=== PATIENT | male | born 1965 | race Caucasian/White ===

== ENCOUNTER 2021-09-12 15:03 | Inpatient (IN) | payer MEDICARE, OTHER ==
[2021-09-12 16:55] VITALS: BMI 39.0
[2021-09-12] MEDS ORDERED: BISMUTH SUBSALICYLATE 524 MG/30 ML PO PRN (18:41)
[2021-09-12] MEDS ORDERED: MAGNESIUM CITRATE 300 ML BOTTLE PO PRN (18:41)
[2021-09-12] MEDS ORDERED: MENTHOL/PHENOL 1 EACH UD MM PRN (18:41)
[2021-09-12] MEDS ORDERED: ONDANSETRON *ODT* 4 MG TABLET SL PRN (18:41)
[2021-09-12] MEDS ORDERED: MAG HYDROX/AL HYDROX/SIMETH 30 ML UNIT-DOSE CUP PO PRN (18:41)
[2021-09-12] MEDS ORDERED: MAGNESIUM HYDROX 2400MG/30ML ORAL SUSPENSION 30 ML CUP PO PRN (18:41)
[2021-09-12] MEDS: THIAMINE HCL 100 MG TABLET (FP) PO SCH (22:32)
[2021-09-12] MEDS: MELATONIN 5 MG TABLETS PO SCH (22:32)
[2021-09-13 10:14] LABS: HEMATOCRIT 31.1 % (35.4-49); HEMOGLOBIN 10.8 GM/dL (11.7-16.9); MCH 32.2 pg (25.7-33.7); MCHC 34.7 g/dl (32.0-35.9); MEAN CELL VOLUME 92.9 fl (80-96); MEAN PLT VOLUME 7.8 fl (7.5-11.1); PLATELET COUNT 81 10^3/uL (134-434); RBC 3.35 M/mm3 (4.00-5.60); RDW 16.9 % (11.9-15.9); WHITE BLOOD COUNT 3.3 K/mm3 (4.0-10.0)
[2021-09-13] MEDS: PRENATAL VITAMINS W/ FOLIC ACID TABLET (FP) PO SCH (10:24)
[2021-09-13] MEDS: diazePAM 5 MG TABLET PO SCH ×3 (10:24→22:41)
[2021-09-13] MEDS: IBUPROFEN 400 MG TABLET (FP) PO PRN ×2 (10:26→18:01)
[2021-09-13 10:39] LABS: BLOOD UREA NITROGEN 7.1 mg/dL (7-18); CALCIUM 8.3 mg/dL (8.5-10.1)
[2021-09-13 10:42] LABS: CREATININE 0.6 mg/dL (0.55-1.3)
[2021-09-13 10:44] LABS: BILIRUBIN,TOTAL 2.1 mg/dL (0.2-1)
[2021-09-13] MEDS ORDERED: FLU VACC QS2021-22(6MOS UP)/PF 60 MCG/0.5 ML SYRINGE IM ONE (12:00)
[2021-09-13] MEDS: diazePAM 5 MG TABLET PO PRN (15:41)
[2021-09-13] MEDS: METHOCARBAMOL 500 MG TABLET PO PRN ×2 (15:43→22:41)
[2021-09-13] MEDS: MELATONIN 5 MG TABLETS PO SCH (22:41)
[2021-09-13] MEDS: THIAMINE HCL 100 MG TABLET (FP) PO SCH (22:41)
[2021-09-14] MEDS: diazePAM 5 MG TABLET PO SCH ×4 (06:46→22:36)
[2021-09-14] MEDS: METHOCARBAMOL 500 MG TABLET PO PRN ×2 (10:06→22:36)
[2021-09-14] MEDS: PRENATAL VITAMINS W/ FOLIC ACID TABLET (FP) PO SCH (10:06)
[2021-09-14] MEDS: IBUPROFEN 400 MG TABLET (FP) PO PRN ×2 (10:09→19:43)
[2021-09-14] MEDS: THIAMINE HCL 100 MG TABLET (FP) PO SCH (22:36)
[2021-09-14] MEDS: MELATONIN 5 MG TABLETS PO SCH (22:36)
[2021-09-15] MEDS: diazePAM 5 MG TABLET PO SCH ×3 (06:44→22:54)
[2021-09-15] MEDS: IBUPROFEN 400 MG TABLET (FP) PO PRN (06:48)
[2021-09-15] MEDS: PRENATAL VITAMINS W/ FOLIC ACID TABLET (FP) PO SCH (10:38)
[2021-09-15] MEDS: diazePAM 5 MG TABLET PO PRN (10:39)
[2021-09-15 12:37] LABS: HEMATOCRIT 32.3 % (35.4-49); HEMOGLOBIN 11.1 GM/dL (11.7-16.9); INR 1.11 (0.83-1.09); MCH 32.8 pg (25.7-33.7); MCHC 34.3 g/dl (32.0-35.9); MEAN CELL VOLUME 95.6 fl (80-96); MEAN PLT VOLUME 8.4 fl (7.5-11.1); PLATELET COUNT 87 10^3/uL (134-434); PROTHROMBIN TIME (PATIENT) 12.4 SEC (9.7-13.0); RBC 3.38 M/mm3 (4.00-5.60); RDW 17.4 % (11.9-15.9); WHITE BLOOD COUNT 3.1 K/mm3 (4.0-10.0)
[2021-09-15 12:39] LABS: ALBUMIN 3.1 g/dl (3.4-5.0); BLOOD UREA NITROGEN 10.8 mg/dL (7-18); CALCIUM 8.9 mg/dL (8.5-10.1)
[2021-09-15 12:42] LABS: CREATININE 0.7 mg/dL (0.55-1.3)
[2021-09-15 12:43] LABS: BILIRUBIN,TOTAL 1.2 mg/dL (0.2-1); TOT PROT 7.4 g/dl (6.4-8.2)
[2021-09-15] MEDS: LIDOCAINE 5% TOPICAL PATCH TP SCH (14:56)
[2021-09-15] MEDS: MELATONIN 5 MG TABLETS PO SCH (22:53)
[2021-09-15] MEDS: THIAMINE HCL 100 MG TABLET (FP) PO SCH (22:53)
[2021-09-15] MEDS: LIDOCAINE PATCH REMOVAL MC SCH (22:54)
[2021-09-16] MEDS: diazePAM 5 MG TABLET PO SCH ×2 (06:32→17:31)
[2021-09-16] MEDS: PRENATAL VITAMINS W/ FOLIC ACID TABLET (FP) PO SCH (10:33)
[2021-09-16] MEDS: LIDOCAINE 5% TOPICAL PATCH TP SCH (10:33)
[2021-09-16] MEDS: IBUPROFEN 400 MG TABLET (FP) PO PRN (10:35)
[2021-09-16] MEDS: METHOCARBAMOL 500 MG TABLET PO PRN (20:39)
[2021-09-16] MEDS: LIDOCAINE PATCH REMOVAL MC SCH (22:23)
[2021-09-16] MEDS: THIAMINE HCL 100 MG TABLET (FP) PO SCH (22:23)
[2021-09-16] MEDS: MELATONIN 5 MG TABLETS PO SCH (22:23)
[2021-09-17] MEDS ORDERED: diazePAM 5 MG TABLET PO ONE (06:00)
[2021-09-17] MEDS: LIDOCAINE 5% TOPICAL PATCH TP SCH (10:29)
[2021-09-17] MEDS: PRENATAL VITAMINS W/ FOLIC ACID TABLET (FP) PO SCH (10:29)
[2021-09-17] MEDS: IBUPROFEN 400 MG TABLET (FP) PO PRN (10:30)
[2021-09-17 13:24] VITALS: BP 99/60; PULSE 82; TEMP 97.3
== END 2021-09-17 13:03 | disposition other institution (70) | DRG 897 ==
LOC: YASAS 15:03 → Y3N 18:30 → UNDOADMIN 18:30
PROVIDERS: ADMIT Allergy & Immunology; ATTEND Allergy & Immunology
PROC: HZ2ZZZZ Detoxification Services for Substance Abuse Treatment (ICD-10-PCS; principal; 2021-09-12)
DX: F10.230 Alcohol dependence with withdrawal, uncomplicated (principal); I69.854 Hemiplegia and hemiparesis following other cerebrovascular disease affecting left non-dominant side; D61.818 Other pancytopenia; E80.6 Other disorders of bilirubin metabolism; K74.60 Unspecified cirrhosis of liver; M54.50 Low back pain, unspecified; G89.29 Other chronic pain; H91.91 Unspecified hearing loss, right ear; R74.8 Abnormal levels of other serum enzymes; R26.89 Other abnormalities of gait and mobility; Z99.89 Dependence on other enabling machines and devices; Z59.00 Homelessness unspecified
CPT/HCPCS: 36415; 80053; 85027; 85610; 86780; C9803; U0003; U0005

== ENCOUNTER 2021-09-17 13:18 | Inpatient (IN) | payer MEDICARE, OTHER ==
[2021-09-17] MEDS ORDERED: LOPERAMIDE HCL 2 MG CAPSULE PO PRN (13:59)
[2021-09-17] MEDS ORDERED: ACETAMINOPHEN 325 MG TABLET (FP) PO PRN (13:59)
[2021-09-17] MEDS ORDERED: MAGNESIUM HYDROX 2400MG/30ML ORAL SUSPENSION 30 ML CUP PO PRN (13:59)
[2021-09-17] MEDS ORDERED: guaiFENesin 200 MG/10 ML 10 ML UNIT-DOSE CUPS PO PRN (13:59)
[2021-09-17] MEDS ORDERED: P-EPHED 60MG/TRIPROLIDI 2.5MG TABLET PO PRN (13:59)
[2021-09-17] MEDS ORDERED: MAGNESIUM CITRATE 300 ML BOTTLE PO PRN (13:59)
[2021-09-17] MEDS ORDERED: MENTHOL/PHENOL 1 EACH UD MM PRN (13:59)
[2021-09-17] MEDS ORDERED: MAG HYDROX/AL HYDROX/SIMETH 30 ML UNIT-DOSE CUP PO PRN (13:59)
[2021-09-17] MEDS: hydrOXYzine PAMOATE 25 MG CAPSULE (FP) PO SCH ×3 (15:28→21:46)
[2021-09-17] MEDS: THIAMINE HCL 100 MG TABLET (FP) PO SCH (21:45)
[2021-09-17] MEDS: MELATONIN 5 MG TABLETS PO SCH (21:45)
[2021-09-18] MEDS: hydrOXYzine PAMOATE 25 MG CAPSULE (FP) PO SCH ×6 (06:53→21:16)
[2021-09-18] MEDS: IBUPROFEN 400 MG TABLET (FP) PO PRN ×3 (07:11→21:17)
[2021-09-18] MEDS: LIDOCAINE 5% TOPICAL PATCH TP SCH (10:28)
[2021-09-18] MEDS: PRENATAL VITAMINS W/ FOLIC ACID TABLET (FP) PO SCH (10:29)
[2021-09-18 16:47] LABS: HIV INTERPRETATION NEGATIVE (NEGATIVE)
[2021-09-18] MEDS: THIAMINE HCL 100 MG TABLET (FP) PO SCH (21:16)
[2021-09-18] MEDS: MELATONIN 5 MG TABLETS PO SCH (21:16)
[2021-09-18] MEDS: LIDOCAINE PATCH REMOVAL MC SCH (21:16)
[2021-09-19] MEDS: hydrOXYzine PAMOATE 25 MG CAPSULE (FP) PO SCH ×5 (06:50→22:16)
[2021-09-19] MEDS: IBUPROFEN 400 MG TABLET (FP) PO PRN ×2 (06:53→13:57)
[2021-09-19] MEDS: LIDOCAINE 5% TOPICAL PATCH TP SCH (11:12)
[2021-09-19] MEDS: PRENATAL VITAMINS W/ FOLIC ACID TABLET (FP) PO SCH (11:12)
[2021-09-19] MEDS: THIAMINE HCL 100 MG TABLET (FP) PO SCH (22:16)
[2021-09-19] MEDS: MELATONIN 5 MG TABLETS PO SCH (22:16)
[2021-09-19] MEDS: LIDOCAINE PATCH REMOVAL MC SCH (23:37)
[2021-09-20] MEDS: hydrOXYzine PAMOATE 25 MG CAPSULE (FP) PO SCH ×5 (06:37→21:12)
[2021-09-20] MEDS: IBUPROFEN 400 MG TABLET (FP) PO PRN ×2 (06:37→14:20)
[2021-09-20] MEDS: PRENATAL VITAMINS W/ FOLIC ACID TABLET (FP) PO SCH (10:11)
[2021-09-20] MEDS: LIDOCAINE 5% TOPICAL PATCH TP SCH (10:12)
[2021-09-20] MEDS ORDERED: LACTULOSE 20 GM/30 ML UDC (FOR ORAL USE ONLY) ONE (14:33)
[2021-09-20] MEDS: LACTULOSE 20 GM/30 ML UDC (FOR ORAL USE ONLY) PO PRN (14:35)
[2021-09-20] MEDS: ACAMPROSATE CALCIUM 333 MG TABLET.DR PO SCH (21:12)
[2021-09-20] MEDS: THIAMINE HCL 100 MG TABLET (FP) PO SCH (21:12)
[2021-09-20] MEDS: MELATONIN 5 MG TABLETS PO SCH (21:12)
[2021-09-20] MEDS: LIDOCAINE PATCH REMOVAL MC SCH (21:13)
[2021-09-20] MEDS: traZODone HCL 50 MG TABLET (FP) PO SCH (21:14)
[2021-09-20] MEDS ORDERED: traZODone HCL 100 MG TABLET (FP) ONE (21:14)
[2021-09-20] MEDS ORDERED: LACTULOSE 10 GM/15 ML PO SCH (22:00)
[2021-09-21] MEDS ORDERED: PT OWN MED DRAWER 7, Y5N ONE (07:01)
[2021-09-21] MEDS: ACAMPROSATE CALCIUM 333 MG TABLET.DR PO SCH ×3 (07:02→21:22)
[2021-09-21] MEDS: IBUPROFEN 400 MG TABLET (FP) PO PRN ×2 (07:02→21:23)
[2021-09-21] MEDS: hydrOXYzine PAMOATE 25 MG CAPSULE (FP) PO SCH ×5 (07:02→21:23)
[2021-09-21] MEDS ORDERED: FUROSEMIDE 40 MG TABLET (FP) PO SCH (10:00)
[2021-09-21] MEDS ORDERED: PATIENT'S OWN MEDICATION (NON-FORMULARY) (Ferrous Sulfate [Ferrous Sulfate] 325 MG Tablet) PO SCH (10:00)
[2021-09-21] MEDS ORDERED: PATIENT'S OWN MEDICATION (NON-FORMULARY) (Spironolactone [Aldactone] 50 MG Tablet) PO SCH (10:00)
[2021-09-21] MEDS: FERROUS SO4 325 MG TABLET (FP) PO SCH (11:43)
[2021-09-21] MEDS: SERTRALINE HCL 50 MG TABLET (FP) PO SCH (11:43)
[2021-09-21] MEDS: FOLIC ACID 1 MG TABLET (FP) PO SCH (11:43)
[2021-09-21] MEDS: SPIRONOLACTONE 25 MG TABLET PO SCH (11:43)
[2021-09-21] MEDS: LIDOCAINE 5% TOPICAL PATCH TP SCH (11:44)
[2021-09-21] MEDS: PRENATAL VITAMINS W/ FOLIC ACID TABLET (FP) PO SCH (11:44)
[2021-09-21] MEDS: LEVOTHYROXINE NA 25 MCG TABLET (FP) PO SCH (11:46)
[2021-09-21] MEDS: LACTULOSE 20 GM/30 ML UDC (FOR ORAL USE ONLY) PO PRN (11:59)
[2021-09-21] MEDS: THIAMINE HCL 100 MG TABLET (FP) PO SCH (21:22)
[2021-09-21] MEDS: traZODone HCL 50 MG TABLET (FP) PO SCH (21:22)
[2021-09-21] MEDS: MELATONIN 5 MG TABLETS PO SCH (21:22)
[2021-09-21] MEDS: LIDOCAINE PATCH REMOVAL MC SCH (21:24)
[2021-09-22] MEDS ORDERED: PT OWN MED DRAWER 7, Y5N ONE ×2 (03:50→06:38)
[2021-09-22] MEDS: LEVOTHYROXINE NA 25 MCG TABLET (FP) PO SCH (06:36)
[2021-09-22] MEDS: hydrOXYzine PAMOATE 25 MG CAPSULE (FP) PO SCH ×5 (06:36→21:59)
[2021-09-22] MEDS: IBUPROFEN 400 MG TABLET (FP) PO PRN ×2 (06:38→12:57)
[2021-09-22] MEDS: ACAMPROSATE CALCIUM 333 MG TABLET.DR PO SCH ×3 (09:01→22:00)
[2021-09-22] MEDS: FERROUS SO4 325 MG TABLET (FP) PO SCH (10:07)
[2021-09-22] MEDS: PRENATAL VITAMINS W/ FOLIC ACID TABLET (FP) PO SCH (10:07)
[2021-09-22] MEDS: SPIRONOLACTONE 25 MG TABLET PO SCH (10:07)
[2021-09-22] MEDS: FOLIC ACID 1 MG TABLET (FP) PO SCH (10:07)
[2021-09-22] MEDS: SERTRALINE HCL 50 MG TABLET (FP) PO SCH (10:08)
[2021-09-22] MEDS: LIDOCAINE 5% TOPICAL PATCH TP SCH (10:08)
[2021-09-22] MEDS: FUROSEMIDE 40 MG TABLET (FP) PO SCH (10:08)
[2021-09-22] MEDS: LACTULOSE 20 GM/30 ML UDC (FOR ORAL USE ONLY) PO PRN (10:09)
[2021-09-22] MEDS: LIDOCAINE PATCH REMOVAL MC SCH (21:59)
[2021-09-22] MEDS: THIAMINE HCL 100 MG TABLET (FP) PO SCH (21:59)
[2021-09-22] MEDS: MELATONIN 5 MG TABLETS PO SCH (21:59)
[2021-09-22] MEDS: traZODone HCL 50 MG TABLET (FP) PO SCH (22:00)
[2021-09-23] MEDS: IBUPROFEN 400 MG TABLET (FP) PO PRN ×2 (06:33→21:42)
[2021-09-23] MEDS: LEVOTHYROXINE NA 25 MCG TABLET (FP) PO SCH (06:34)
[2021-09-23] MEDS: ACAMPROSATE CALCIUM 333 MG TABLET.DR PO SCH ×3 (06:34→21:41)
[2021-09-23] MEDS: hydrOXYzine PAMOATE 25 MG CAPSULE (FP) PO SCH ×5 (06:34→21:43)
[2021-09-23] MEDS: LACTULOSE 20 GM/30 ML UDC (FOR ORAL USE ONLY) PO PRN ×2 (10:34→21:43)
[2021-09-23] MEDS: SPIRONOLACTONE 25 MG TABLET PO SCH (10:34)
[2021-09-23] MEDS: FUROSEMIDE 40 MG TABLET (FP) PO SCH (10:34)
[2021-09-23] MEDS: LIDOCAINE 5% TOPICAL PATCH TP SCH (10:34)
[2021-09-23] MEDS: FOLIC ACID 1 MG TABLET (FP) PO SCH (10:34)
[2021-09-23] MEDS: PRENATAL VITAMINS W/ FOLIC ACID TABLET (FP) PO SCH (10:34)
[2021-09-23] MEDS: SERTRALINE HCL 50 MG TABLET (FP) PO SCH (10:34)
[2021-09-23] MEDS: FERROUS SO4 325 MG TABLET (FP) PO SCH (10:34)
[2021-09-23] MEDS: traZODone HCL 50 MG TABLET (FP) PO SCH (21:41)
[2021-09-23] MEDS: LIDOCAINE PATCH REMOVAL MC SCH (21:41)
[2021-09-23] MEDS: THIAMINE HCL 100 MG TABLET (FP) PO SCH (21:41)
[2021-09-23] MEDS: MELATONIN 5 MG TABLETS PO SCH (21:41)
[2021-09-24] MEDS: LEVOTHYROXINE NA 25 MCG TABLET (FP) PO SCH (06:48)
[2021-09-24] MEDS: hydrOXYzine PAMOATE 25 MG CAPSULE (FP) PO SCH ×5 (06:48→21:09)
[2021-09-24] MEDS: ACAMPROSATE CALCIUM 333 MG TABLET.DR PO SCH ×3 (06:48→21:09)
[2021-09-24] MEDS: IBUPROFEN 400 MG TABLET (FP) PO PRN ×2 (06:49→21:09)
[2021-09-24] MEDS: PRENATAL VITAMINS W/ FOLIC ACID TABLET (FP) PO SCH (10:14)
[2021-09-24] MEDS: FERROUS SO4 325 MG TABLET (FP) PO SCH (10:14)
[2021-09-24] MEDS: LIDOCAINE 5% TOPICAL PATCH TP SCH (10:15)
[2021-09-24] MEDS: SPIRONOLACTONE 25 MG TABLET PO SCH (10:15)
[2021-09-24] MEDS: FOLIC ACID 1 MG TABLET (FP) PO SCH (10:15)
[2021-09-24] MEDS: FUROSEMIDE 40 MG TABLET (FP) PO SCH (10:15)
[2021-09-24] MEDS: LACTULOSE 20 GM/30 ML UDC (FOR ORAL USE ONLY) PO PRN ×2 (10:15→21:10)
[2021-09-24] MEDS: SERTRALINE HCL 50 MG TABLET (FP) PO SCH (10:15)
[2021-09-24] MEDS: METHOCARBAMOL 500 MG TABLET PO SCH ×2 (13:29→21:08)
[2021-09-24] MEDS: THIAMINE HCL 100 MG TABLET (FP) PO SCH (21:08)
[2021-09-24] MEDS: traZODone HCL 50 MG TABLET (FP) PO SCH (21:08)
[2021-09-24] MEDS: MELATONIN 5 MG TABLETS PO SCH (21:08)
[2021-09-24] MEDS: LIDOCAINE PATCH REMOVAL MC SCH (21:11)
[2021-09-25] MEDS: IBUPROFEN 400 MG TABLET (FP) PO PRN ×2 (06:11→21:34)
[2021-09-25] MEDS: LEVOTHYROXINE NA 25 MCG TABLET (FP) PO SCH (06:11)
[2021-09-25] MEDS: hydrOXYzine PAMOATE 25 MG CAPSULE (FP) PO SCH ×5 (06:11→21:34)
[2021-09-25] MEDS: ACAMPROSATE CALCIUM 333 MG TABLET.DR PO SCH ×3 (06:11→21:33)
[2021-09-25] MEDS: SERTRALINE HCL 50 MG TABLET (FP) PO SCH (09:55)
[2021-09-25] MEDS: FOLIC ACID 1 MG TABLET (FP) PO SCH (09:55)
[2021-09-25] MEDS: PRENATAL VITAMINS W/ FOLIC ACID TABLET (FP) PO SCH (09:55)
[2021-09-25] MEDS: SPIRONOLACTONE 25 MG TABLET PO SCH (09:55)
[2021-09-25] MEDS: FUROSEMIDE 40 MG TABLET (FP) PO SCH (09:55)
[2021-09-25] MEDS: FERROUS SO4 325 MG TABLET (FP) PO SCH (09:55)
[2021-09-25] MEDS: METHOCARBAMOL 500 MG TABLET PO SCH ×2 (09:55→21:33)
[2021-09-25] MEDS: LIDOCAINE 5% TOPICAL PATCH TP SCH (09:56)
[2021-09-25] MEDS: traZODone HCL 50 MG TABLET (FP) PO SCH (21:33)
[2021-09-25] MEDS: LACTULOSE 20 GM/30 ML UDC (FOR ORAL USE ONLY) PO PRN (21:33)
[2021-09-25] MEDS: THIAMINE HCL 100 MG TABLET (FP) PO SCH (21:33)
[2021-09-25] MEDS: MELATONIN 5 MG TABLETS PO SCH (21:33)
[2021-09-25] MEDS: LIDOCAINE PATCH REMOVAL MC SCH (21:34)
[2021-09-26] MEDS: ACAMPROSATE CALCIUM 333 MG TABLET.DR PO SCH ×3 (06:12→21:15)
[2021-09-26] MEDS: hydrOXYzine PAMOATE 25 MG CAPSULE (FP) PO SCH ×5 (06:12→21:14)
[2021-09-26] MEDS: LEVOTHYROXINE NA 25 MCG TABLET (FP) PO SCH (06:13)
[2021-09-26] MEDS: IBUPROFEN 400 MG TABLET (FP) PO PRN ×2 (06:13→13:48)
[2021-09-26] MEDS: PRENATAL VITAMINS W/ FOLIC ACID TABLET (FP) PO SCH (09:56)
[2021-09-26] MEDS: FOLIC ACID 1 MG TABLET (FP) PO SCH (09:56)
[2021-09-26] MEDS: SERTRALINE HCL 50 MG TABLET (FP) PO SCH (09:57)
[2021-09-26] MEDS: METHOCARBAMOL 500 MG TABLET PO SCH ×2 (09:57→21:14)
[2021-09-26] MEDS: FERROUS SO4 325 MG TABLET (FP) PO SCH (09:57)
[2021-09-26] MEDS: LIDOCAINE 5% TOPICAL PATCH TP SCH (09:57)
[2021-09-26] MEDS: LACTULOSE 20 GM/30 ML UDC (FOR ORAL USE ONLY) PO PRN ×2 (09:59→21:16)
[2021-09-26] MEDS: SPIRONOLACTONE 25 MG TABLET PO SCH (10:27)
[2021-09-26] MEDS: FUROSEMIDE 40 MG TABLET (FP) PO SCH (10:27)
[2021-09-26] MEDS: THIAMINE HCL 100 MG TABLET (FP) PO SCH (21:13)
[2021-09-26] MEDS: MELATONIN 5 MG TABLETS PO SCH (21:13)
[2021-09-26] MEDS: traZODone HCL 50 MG TABLET (FP) PO SCH (21:14)
[2021-09-26] MEDS: LIDOCAINE PATCH REMOVAL MC SCH (21:15)
[2021-09-27] MEDS: ACAMPROSATE CALCIUM 333 MG TABLET.DR PO SCH ×3 (06:31→21:21)
[2021-09-27] MEDS: IBUPROFEN 400 MG TABLET (FP) PO PRN ×3 (06:31→21:21)
[2021-09-27] MEDS: hydrOXYzine PAMOATE 25 MG CAPSULE (FP) PO SCH ×5 (06:31→21:20)
[2021-09-27] MEDS: LEVOTHYROXINE NA 25 MCG TABLET (FP) PO SCH (07:40)
[2021-09-27] MEDS: PRENATAL VITAMINS W/ FOLIC ACID TABLET (FP) PO SCH (10:32)
[2021-09-27] MEDS: FERROUS SO4 325 MG TABLET (FP) PO SCH (10:32)
[2021-09-27] MEDS: METHOCARBAMOL 500 MG TABLET PO SCH ×2 (10:32→21:20)
[2021-09-27] MEDS: SERTRALINE HCL 50 MG TABLET (FP) PO SCH (10:32)
[2021-09-27] MEDS: FOLIC ACID 1 MG TABLET (FP) PO SCH (10:32)
[2021-09-27] MEDS: FUROSEMIDE 40 MG TABLET (FP) PO SCH (10:33)
[2021-09-27] MEDS: LIDOCAINE 5% TOPICAL PATCH TP SCH (10:33)
[2021-09-27] MEDS: SPIRONOLACTONE 25 MG TABLET PO SCH (10:33)
[2021-09-27] MEDS: LACTULOSE 20 GM/30 ML UDC (FOR ORAL USE ONLY) PO PRN ×2 (10:34→21:22)
[2021-09-27] MEDS: THIAMINE HCL 100 MG TABLET (FP) PO SCH (21:20)
[2021-09-27] MEDS: MELATONIN 5 MG TABLETS PO SCH (21:20)
[2021-09-27] MEDS: traZODone HCL 50 MG TABLET (FP) PO SCH (21:20)
[2021-09-27] MEDS: LIDOCAINE PATCH REMOVAL MC SCH (21:22)
[2021-09-28] MEDS ORDERED: PT OWN MED DRAWER 7, Y5N ONE (04:08)
[2021-09-28] MEDS: IBUPROFEN 400 MG TABLET (FP) PO PRN (06:35)
[2021-09-28] MEDS: ACAMPROSATE CALCIUM 333 MG TABLET.DR PO SCH ×3 (06:35→21:05)
[2021-09-28] MEDS: hydrOXYzine PAMOATE 25 MG CAPSULE (FP) PO SCH ×5 (06:35→21:06)
[2021-09-28] MEDS: LEVOTHYROXINE NA 25 MCG TABLET (FP) PO SCH (06:35)
[2021-09-28] MEDS: LIDOCAINE 5% TOPICAL PATCH TP SCH (10:06)
[2021-09-28] MEDS: FOLIC ACID 1 MG TABLET (FP) PO SCH (10:07)
[2021-09-28] MEDS: SPIRONOLACTONE 25 MG TABLET PO SCH (10:08)
[2021-09-28] MEDS: SERTRALINE HCL 50 MG TABLET (FP) PO SCH (10:08)
[2021-09-28] MEDS: FUROSEMIDE 40 MG TABLET (FP) PO SCH (10:08)
[2021-09-28] MEDS: METHOCARBAMOL 500 MG TABLET PO SCH ×2 (10:08→21:06)
[2021-09-28] MEDS: FERROUS SO4 325 MG TABLET (FP) PO SCH (10:08)
[2021-09-28] MEDS: PRENATAL VITAMINS W/ FOLIC ACID TABLET (FP) PO SCH (10:09)
[2021-09-28] MEDS: LACTULOSE 20 GM/30 ML UDC (FOR ORAL USE ONLY) PO PRN ×2 (10:11→21:06)
[2021-09-28] MEDS: traZODone HCL 50 MG TABLET (FP) PO SCH (21:05)
[2021-09-28] MEDS: MELATONIN 5 MG TABLETS PO SCH (21:06)
[2021-09-28] MEDS: THIAMINE HCL 100 MG TABLET (FP) PO SCH (21:06)
[2021-09-28] MEDS: LIDOCAINE PATCH REMOVAL MC SCH (21:07)
[2021-09-29] MEDS: IBUPROFEN 400 MG TABLET (FP) PO PRN ×3 (06:15→21:31)
[2021-09-29] MEDS: hydrOXYzine PAMOATE 25 MG CAPSULE (FP) PO SCH ×5 (06:15→21:32)
[2021-09-29] MEDS: ACAMPROSATE CALCIUM 333 MG TABLET.DR PO SCH ×3 (06:15→21:31)
[2021-09-29] MEDS: LEVOTHYROXINE NA 25 MCG TABLET (FP) PO SCH (06:15)
[2021-09-29] MEDS: SERTRALINE HCL 50 MG TABLET (FP) PO SCH (10:35)
[2021-09-29] MEDS: FOLIC ACID 1 MG TABLET (FP) PO SCH (10:35)
[2021-09-29] MEDS: LIDOCAINE 5% TOPICAL PATCH TP SCH (10:35)
[2021-09-29] MEDS: FUROSEMIDE 40 MG TABLET (FP) PO SCH (10:35)
[2021-09-29] MEDS: PRENATAL VITAMINS W/ FOLIC ACID TABLET (FP) PO SCH (10:35)
[2021-09-29] MEDS: FERROUS SO4 325 MG TABLET (FP) PO SCH (10:35)
[2021-09-29] MEDS: METHOCARBAMOL 500 MG TABLET PO SCH ×2 (10:35→21:31)
[2021-09-29] MEDS: SPIRONOLACTONE 25 MG TABLET PO SCH (10:35)
[2021-09-29] MEDS: LACTULOSE 20 GM/30 ML UDC (FOR ORAL USE ONLY) PO PRN ×2 (10:37→21:32)
[2021-09-29] MEDS: MELATONIN 5 MG TABLETS PO SCH (21:31)
[2021-09-29] MEDS: THIAMINE HCL 100 MG TABLET (FP) PO SCH (21:31)
[2021-09-29] MEDS: traZODone HCL 50 MG TABLET (FP) PO SCH (21:31)
[2021-09-29] MEDS: LIDOCAINE PATCH REMOVAL MC SCH (21:32)
[2021-09-30] MEDS: hydrOXYzine PAMOATE 25 MG CAPSULE (FP) PO SCH ×5 (06:16→21:06)
[2021-09-30] MEDS: ACAMPROSATE CALCIUM 333 MG TABLET.DR PO SCH ×3 (06:16→21:06)
[2021-09-30] MEDS: LEVOTHYROXINE NA 25 MCG TABLET (FP) PO SCH (06:16)
[2021-09-30] MEDS: IBUPROFEN 400 MG TABLET (FP) PO PRN ×2 (06:16→21:06)
[2021-09-30] MEDS: SPIRONOLACTONE 25 MG TABLET PO SCH (09:21)
[2021-09-30] MEDS: PRENATAL VITAMINS W/ FOLIC ACID TABLET (FP) PO SCH (09:21)
[2021-09-30] MEDS: SERTRALINE HCL 50 MG TABLET (FP) PO SCH (09:21)
[2021-09-30] MEDS: FOLIC ACID 1 MG TABLET (FP) PO SCH (09:21)
[2021-09-30] MEDS: FERROUS SO4 325 MG TABLET (FP) PO SCH (09:21)
[2021-09-30] MEDS: METHOCARBAMOL 500 MG TABLET PO SCH ×2 (09:21→21:06)
[2021-09-30] MEDS: FUROSEMIDE 40 MG TABLET (FP) PO SCH (09:22)
[2021-09-30] MEDS: LIDOCAINE 5% TOPICAL PATCH TP SCH (09:22)
[2021-09-30] MEDS: LACTULOSE 20 GM/30 ML UDC (FOR ORAL USE ONLY) PO PRN ×2 (09:24→21:07)
[2021-09-30] MEDS: THIAMINE HCL 100 MG TABLET (FP) PO SCH (21:06)
[2021-09-30] MEDS: traZODone HCL 50 MG TABLET (FP) PO SCH (21:06)
[2021-09-30] MEDS: MELATONIN 5 MG TABLETS PO SCH (21:06)
[2021-09-30] MEDS: LIDOCAINE PATCH REMOVAL MC SCH (21:07)
[2021-10-01] MEDS: IBUPROFEN 400 MG TABLET (FP) PO PRN (06:10)
[2021-10-01] MEDS: ACAMPROSATE CALCIUM 333 MG TABLET.DR PO SCH (06:10)
[2021-10-01] MEDS: hydrOXYzine PAMOATE 25 MG CAPSULE (FP) PO SCH ×2 (06:10→09:30)
[2021-10-01] MEDS: LEVOTHYROXINE NA 25 MCG TABLET (FP) PO SCH (06:10)
[2021-10-01 07:20] VITALS: BP 101/58; PULSE 61; TEMP 98.1
[2021-10-01] MEDS: METHOCARBAMOL 500 MG TABLET PO SCH (09:30)
[2021-10-01] MEDS: FERROUS SO4 325 MG TABLET (FP) PO SCH (09:30)
[2021-10-01] MEDS: FOLIC ACID 1 MG TABLET (FP) PO SCH (09:30)
[2021-10-01] MEDS: SERTRALINE HCL 50 MG TABLET (FP) PO SCH (09:30)
[2021-10-01] MEDS: SPIRONOLACTONE 25 MG TABLET PO SCH (09:31)
[2021-10-01] MEDS: PRENATAL VITAMINS W/ FOLIC ACID TABLET (FP) PO SCH (09:31)
[2021-10-01] MEDS: FUROSEMIDE 40 MG TABLET (FP) PO SCH (09:33)
[2021-10-01] MEDS: LIDOCAINE 5% TOPICAL PATCH TP SCH (09:33)
== END 2021-10-01 10:00 | disposition home or self-care (01) | DRG 895 ==
LOC: YASAS 13:18 → Y3W 13:21
PROVIDERS: ADMIT Allergy & Immunology; ATTEND Allergy & Immunology
PROC: HZ42ZZZ Group Counseling for Substance Abuse Treatment, Cognitive-Behavioral (ICD-10-PCS; principal; 2021-09-17)
DX: F10.20 Alcohol dependence, uncomplicated (principal); I69.354 Hemiplegia and hemiparesis following cerebral infarction affecting left non-dominant side; F10.282 Alcohol dependence with alcohol-induced sleep disorder; F32.A Depression, unspecified; F10.280 Alcohol dependence with alcohol-induced anxiety disorder; K74.60 Unspecified cirrhosis of liver; R07.81 Pleurodynia; M54.59 Other low back pain; G89.29 Other chronic pain; S82.842D Displaced bimalleolar fracture of left lower leg, subsequent encounter for closed fracture with routine healing; W19.XXXD Unspecified fall, subsequent encounter; Z56.0 Unemployment, unspecified; Z59.00 Homelessness unspecified
CPT/HCPCS: 36415; 71101-TC-LT-FY; 73610-TC-LT-FY; 87389

== ENCOUNTER 2021-09-25 10:48 | Emergency (ER) | payer MEDICARE, OTHER ==
[2021-09-25 12:38] VITALS: TEMP 98.1
[2021-09-25] MEDS ORDERED: oxyCODONE HCL 5 MG TABLET PO ONE (13:00)
[2021-09-25] MEDS ORDERED: oxyCODONE HCL 5 MG TABLET ONE (13:04)
[2021-09-25 13:22] VITALS: BMI 39.0
[2021-09-25 16:26] VITALS: BP 95/60; PULSE 86
== END 2021-09-25 16:55 | disposition home or self-care (01) ==
LOC: JER 10:48
DX: S82.872A Displaced pilon fracture of left tibia, initial encounter for closed fracture (principal); S82.852A Displaced trimalleolar fracture of left lower leg, initial encounter for closed fracture; S22.42XA Multiple fractures of ribs, left side, initial encounter for closed fracture; W19.XXXA Unspecified fall, initial encounter; Y92.9 Unspecified place or not applicable
CPT/HCPCS: 73700-TC-RT; 93005; 93010; 99284-25